=== PATIENT | female | born 1995 | race Caucasian/White ===

== ENCOUNTER 2025-01-12 08:36 | Emergency (ER) | payer BC, OTHER ==
[2025-01-12 08:50] VITALS: RESP 18
--- NOTE | 2025-01-12 09:26 | ED ---
Female Urogenital HPI - General Chief complaint: Vaginal Bleeding Stated complaint: 7 weeks preg, vaginal bleeding Time Seen by Provider: 01/12/25 08:51 Source: patient, RN notes reviewed Mode of arrival: ambulatory Limitations: no limitations - History of Present Illness Initial comments: This is a 29-year-old female who presents to the emergency department for pelvic pain and vaginal bleeding. Patient is approximately 7 weeks and . States that she has had intermittent vaginal bleeding for the last week. Describes it as more of a spotting. She is still waiting for an upcoming appointment with [facility] in the next couple of weeks. Denies any nausea or vomiting associated with this. MD Complaint: vaginal bleeding, pelvic pain - Related Data Allergies Allergy/AdvReac Type Severity Reaction Status Date / Time No Known Allergies Allergy Verified 01/12/25 08:50 Review of Systems ROS Statement: Those systems with pertinent positive or pertinent negative responses have been documented in the HPI. ROS Other: All systems not noted in ROS Statement are negative. Past Medical History Past Medical History: Hypertension History of Any Multi-Drug Resistant Organisms: None Reported Past Surgical History: No Surgical Hx Reported Past Psychological History: Anxiety Smoking Status: Vaper Past Alcohol Use History: None Reported Past Drug Use History: None Reported General Exam Limitations: no limitations General appearance: alert, in no apparent distress Head exam: Present: atraumatic, normocephalic, normal inspection Respiratory exam: Present: normal lung sounds bilaterally. Absent: respiratory distress, wheezes, rales, rhonchi, stridor Cardiovascular Exam: Present: regular rate, normal rhythm Neurological exam: Present: alert, oriented X3, CN II-XII intact Psychiatric exam: Present: normal affect, normal mood Skin exam: Present: warm, dry, intact, normal color. Absent: rash Course Vital Signs 01/12/25 01/12/25 08:47 11:22 Temperature 98.6 F 98.4 F Pulse Rate 70 74 Respiratory 18 18 Rate Blood Pressure 143/86 140/84 O2 Sat by Pulse 97 99 Oximetry Medical Decision Making - Medical Decision Making This is a 29 year old female who presents to the emergency department for vaginal bleeding in . Was pt. sent in by a medical professional or institution? @ -No Did you speak to anyone other than the patient for history? @ -No Did you review nursing and triage notes? @ -Yes, and I agree, it is accurate with regards to the patient's symptoms. Were old charts reviewed? @ -No Differential Diagnosis? @ -Differential Vaginal Bleeding: Spontaneous , threatened , molar , ectopic , incompetent cervix, placenta previa, uterine rupture, dysfunctional uterine bleeding, hemorrhage, uterine fibroids, malignancy, coagulopathy, PID, cervicitis, adenomyosis, vaginal trauma, this is not meant to be an all- inclusive list. EKG interpreted by me (3pts min.)? @ -Not obtained X-rays interpreted by me (1pt min.)? @ -Not obtained CT interpreted by me (1pt min.)? @ -Not obtained U/S interpreted by me (1pt. min.)? @ -Obstetrics ultrasound obtained. My interpretation identifies a single live intrauterine . What testing was considered but not performed? (CT, X-rays, U/S, labs)? Why? @ -None What meds were considered but not given? Why? @ -None Did you discuss the management of the patient with other professionals? @ -No Did you reconcile home meds? @ -No Was smoking cessation discussed for >3mins.? @ -No Was critical care preformed (if so, how long)? @ -No Were there social determinants of health that impacted care today? How? (Homelessness, low income, unemployed, alcoholism, drug addiction, transportation, low edu. Level, literacy, decrease access to med. care, fpc, r ehab)? @ -No Was there de-escalation of care discussed even if they declined? (Discuss DNR or withdrawal of care, Hospice)? @ -No What co-morbidities impacted this encounter? (DM, HTN, Smoking, COPD, CAD, Cancer, CVA, Hep., AIDS, mental health diagnosis, sleep apnea, morbid obesity)? @ - Was patient admitted / discharged? @ -Discharged. [place] [address].3. Lab work other mancuso unremarkable. Urinalysis negative for signs of infection. Patient is Rh+ and no RhoGAM is indicated. OB ultrasound obtained revealing a single live intrauterine . Advised she take Tylenol as needed if she develops any additional cramping, continue a vitamin, and otherwise follow-up with her [facility] as scheduled. Patient discharged home in stable condition. Case discussed with ED attending Dr. Peres. Return precautions reviewed in depth, the patient is instructed to return to the emergency department with any new, worsening, or concerning symptoms. Patient verbalized understanding. Undiagnosed new problem with uncertain prognosis? @ -None Drug Therapy requiring intensive monitoring for toxicity (Heparin, Nitro, Insulin, Cardizem)? @ -None Were any procedures done? @ -None Diagnosis/symptom? @ -Vaginal bleeding in Acute, or Chronic, or Acute on Chronic? @ -Acute Uncomplicated (without systemic symptoms) or Complicated (systemic symptoms)? @ -Uncomplicated Side effects of treatment? @ -None Exacerbation, Progression, or Severe Exacerbation] @ -Not applicable Poses a threat to life or bodily function? @ -No - Lab Data Result diagrams: 01/12/25 09:09 01/12/25 09:09 Lab Results 01/12/25 01/12/25 01/12/25 Range/Units 08:50 09:09 09:09 WBC 8.67 (4.50-10.00) 10*3/uL RBC 4.61 (4.10-5.20) 10*6/uL Hgb 13.1 (12.0-15.0) g/dL Hct 38.6 (37.2-46.3) % MCV 83.7 (80.0-97.0) fL MCH 28.4 (27.0-32.0) pg MCHC 33.9 (32.0-37.0) g/dL Plt Count 194 (140-440) 10*3/uL MPV 10.7 (9.5-12.2) fL Immature Gran % (Auto) 0.3 % Neutrophils % 66.5 % Lymphocytes % 24.5 % Monocytes % 5.8 % Eosinophils % 2.4 % Basophils % 0.5 % Immature Gran # 0.03 (0.00-0.04) 10*3/uL Neutrophils # 5.77 (1.80-7.70) 10*3/uL Lymphocytes # 2.12 (0.90-5.00) 10*3/uL Monocytes # 0.50 (0.20-1.00) 10*3/uL Eosinophils # 0.21 (0.04-0.35) 10*3/uL Basophils # 0.04 (0.00-0.10) 10*3/uL Sodium 137 (137-145) mmol/L Potassium 4.1 (3.5-5.1) mmol/L Chloride 105 (98-107) mmol/L Carbon Dioxide 24 (22-30) mmol/L Anion Gap 8 mmol/L BUN 7 (7-17) mg/dL Creatinine 0.56 (0.52-1.04) mg/dL Est GFR (CKD-EPI)AfAm >90 (>60 ml/min/1.73 sqM) Est GFR (CKD-EPI)NonAf >90 (>60 ml/min/1.73 sqM) Glucose 94 (74-99) mg/dL Calcium 9.4 (8.4-10.2) mg/dL Total Bilirubin 0.5 (0.2-1.3) mg/dL AST 28 (14-36) U/L ALT 28 (4-34) U/L Alkaline Phosphatase 51 (38-126) U/L Total Protein 7.2 (6.3-8.2) g/dL Albumin 4.3 (3.5-5.0) g/dL HCG, Quant 63133.3 mIU/mL Urine Color Urine Appearance (Clear) Urine pH (5.0-8.0) Ur Specific Ronald (1.001-1.035) Urine Protein (Negative) Urine Glucose (UA) (Negative) Urine Ketones (Negative) Urine Blood (Negative) Urine Nitrite (Negative) Urine Bilirubin (Negative) Urine Urobilinogen (<2.0) mg/dL Ur Leukocyte Esterase (Negative) Blood Type Blood Type Confirm B Positive Blood Type Recheck Bld Type Recheck Status Antibody Screen Spec Expiration Date 01/12/25 01/12/25 Range/Units 09:09 09:12 WBC (4.50-10.00) 10*3/uL RBC (4.10-5.20) 10*6/uL Hgb (12.0-15.0) g/dL Hct (37.2-46.3) % MCV (80.0-97.0) fL MCH (27.0-32.0) pg MCHC (32.0-37.0) g/dL Plt Count (140-440) 10*3/uL MPV (9.5-12.2) fL Immature Gran % (Auto) % Neutrophils % % Lymphocytes % % Monocytes % % Eosinophils % % Basophils % % Immature Gran # (0.00-0.04) 10*3/uL Neutrophils # (1.80-7.70) 10*3/uL Lymphocytes # (0.90-5.00) 10*3/uL Monocytes # (0.20-1.00) 10*3/uL Eosinophils # (0.04-0.35) 10*3/uL Basophils # (0.00-0.10) 10*3/uL Sodium (137-145) mmol/L Potassium (3.5-5.1) mmol/L Chloride (98-107) mmol/L Carbon Dioxide (22-30) mmol/L Anion Gap mmol/L BUN (7-17) mg/dL Creatinine (0.52-1.04) mg/dL Est GFR (CKD-EPI)AfAm (>60 ml/min/1.73 sqM) Est GFR (CKD-EPI)NonAf (>60 ml/min/1.73 sqM) Glucose (74-99) mg/dL Calcium (8.4-10.2) mg/dL Total Bilirubin (0.2-1.3) mg/dL AST (14-36) U/L ALT (4-34) U/L Alkaline Phosphatase (38-126) U/L Total Protein (6.3-8.2) g/dL Albumin (3.5-5.0) g/dL HCG, Quant mIU/mL Urine Color Colorless Urine Appearance Clear (Clear) Urine pH 6.5 (5.0-8.0) Ur Specific Ronald 1.001 (1.001-1.035) Urine Protein Negative (Negative) Urine Glucose (UA) Negative (Negative) Urine Ketones Negative (Negative) Urine Blood Negative (Negative) Urine Nitrite Negative (Negative) Urine Bilirubin Negative (Negative) Urine Urobilinogen <2.0 (<2.0) mg/dL Ur Leukocyte Esterase Negative (Negative) Blood Type B Positive Blood Type Confirm Blood Type Recheck No Previous Record Bld Type Recheck Status CABO Indicated Antibody Screen NEGATIVE Spec Expiration Date 01/15/20252308 - Radiology Data Radiology results: report reviewed, image reviewed Disposition Clinical Impression: Vaginal bleeding during Disposition: HOME SELF-CARE Instructions (If sedation given, give patient instructions): Non-Threatening First Trimester Vaginal Bleed (ED) Additional Instructions: Return to the emergency department with any new, worsening, or concerning symptoms. Take Tylenol as needed for any additional cramping. Follow-up with your [facility]. Is patient prescribed a controlled substance at d/c from ED?: No Referrals: Vicki Peres DO [Primary Care Provider] - 1-2 days Time of Disposition: 11:00
[2025-01-12 09:31] LABS: Basophils # (A) 0.04 10*3/uL (0.00-0.10); Basophils % (A) 0.5 %; Eosinophils # (A) 0.21 10*3/uL (0.04-0.35); Eosinophils % (A) 2.4 %; HCT 38.6 % (37.2-46.3); HGB 13.1 g/dL (12.0-15.0); Lymphocytes # (A) 2.12 10*3/uL (0.90-5.00); Lymphocytes % (A) 24.5 %; MCH 28.4 pg (27.0-32.0); MCHC 33.9 g/dL (32.0-37.0); MCV 83.7 fL (80.0-97.0); Mean Platelet Volume 10.7 fL (9.5-12.2); Monocytes % (A) 5.8 %; Neutrophils # (A) 5.77 10*3/uL (1.80-7.70); Neutrophils % (A) 66.5 %; Platelet Count 194 10*3/uL (140-440); RBC 4.61 10*6/uL (4.10-5.20); RDW 13.7 % (11.5-14.5); WBC 8.67 10*3/uL (4.50-10.00)
[2025-01-12 09:52] LABS: Appearance,Urine Clear (Clear); Bilirubin,Urine Negative (Negative); Blood,Urine Negative (Negative); Color,Urine Colorless; Glucose,Urine (UA) Negative (Negative); Ketones,Urine Negative (Negative); Leukocyte Esterase,Urine Negative (Negative); Nitrite,Urine Negative (Negative); PH, Urine 6.5 (5.0-8.0); Protein,Urine Negative (Negative); Specific Gravity,Urine 1.001 (1.001-1.035); Urobilinogen,Urine <2.0 mg/dL (<2.0)
--- NOTE | 2025-01-12 09:58 | US ---
EXAMINATION TYPE: Transabdominal DATE OF EXAM: 01/12/2025 9:46 AM COMPARISON: NONE CLINICAL INDICATION: Female, 29 years old with history of Bleeding and pelvic pain in ; Dark brown spotting started Thursday turned to bright pink today with some pelvic cramping. TECHNIQUE: Transvaginal (TV) and Transabdominal (TA) with grayscale and color Doppler imaging includi ng first trimester . FINDINGS: EXAM MEASUREMENTS: GESTATIONAL AGE / DATING Physician Established: Not yet established ( weeks/ days) EDC: Dates by LMP: (7 weeks/2 days) EDC: 08/29/2025 Dates by First Scan: No previous this is first scan ( weeks/ days) EDC: Dates by Current Scan for: (6 weeks/6 days) EDC: 09/01/2025 MATERNAL ANATOMY Uterus: 9.3 x 4.2 x 7.1 cm Right Ovary: 3.9 x 1.7 x 2.6 cm Left Ovary: 3.0 x 2.3 x 2.6 cm Post CDS / Adnexa: WNL Presence of free fluid: No Presence of corpus luteal cyst: No Presence of subchorionic bleed: No GESTATION / SURVEY CRL: 0.91 (6 weeks/6 days) Gestational Sac morphology: Normal Gestational Sac MSD: NA ( weeks/ days) Yolk Sac (normal less than 6mm): 0.2 cm Cardiac Activity/Heart Rate: 132 bpm Rhythm: Normal IUP: Viable IUP Nuchal Translucency 10-14wks (normal less than 3mm): NA Age Appropriate Anatomy Cord Insertion: Too early to visualize Limbs: Too early to visualize Calvarium: Too early to visualize Date of LMP: 11/22/2024 Beta HcG (if available): Not available at this time Heterogenous/complex area seen right fundal uterus = 3.8 x 2.9 x 2.3 cm IMPRESSION: 1. Single live intrauterine with calculated ultrasound age of 6 weeks 6 days by crown rump length with an estimated date of delivery of 09/01/2025 [facility], , 01/12/2025 9:56 AM
[2025-01-12 10:14] LABS: ALT 28 U/L (4-34); AST 28 U/L (14-36); African American GFR (CKD) >90 (>60 ml/min/1.73 sqM); Albumin 4.3 g/dL (3.5-5.0); Alkaline Phosphatase 51 U/L (38-126); Anion Gap 8 mmol/L; Blood Urea Nitrogen 7 mg/dL (7-17); Calcium 9.4 mg/dL (8.4-10.2); Carbon Dioxide 24 mmol/L (22-30); Chloride 105 mmol/L (98-107); Glucose 94 mg/dL (74-99); Non-African American GFR(CKD) >90 (>60 ml/min/1.73 sqM); Potassium 4.1 mmol/L (3.5-5.1); Sodium 137 mmol/L (137-145); Total Bilirubin 0.5 mg/dL (0.2-1.3); Total Protein 7.2 g/dL (6.3-8.2)
[2025-01-12 11:32] VITALS: BP 140/84; PULSE 74; TEMP 98.4
[2025-01-12 12:13] LABS: HCG,Quantitative Serum 69054.3 mIU/mL
== END 2025-01-12 11:41 | disposition home or self-care (01) ==
LOC: EC 08:36
DX: O20.9 Hemorrhage in early pregnancy, unspecified (principal); O99.331 Smoking (tobacco) complicating pregnancy, first trimester; F17.290 Nicotine dependence, other tobacco product, uncomplicated; Z3A.01 Less than 8 weeks gestation of pregnancy
CPT/HCPCS: 36415; 76801; 76817; 80053; 81003; 84702; 85025; 86850; 86900; 86901; 99284

== ENCOUNTER → 2025-02-02 | Outpatient (CLI) | payer BC, OTHER ==
--- NOTE | 2025-02-02 11:27 | US ---
EXAMINATION TYPE: Transabdominal DATE OF EXAM: 02/02/2025 10:52 AM COMPARISON: NONE CLINICAL INDICATION: Female, 29 years old with history of O46.91 ANTEPART BLEEDING FIRST TRIMESTER; p t spotting starting today TECHNIQUE: Transabdominal (TA) with grayscale and color Doppler imaging including first trimester pre gnancy. FINDINGS: EXAM MEASUREMENTS: GESTATIONAL AGE / DATING Physician Established: (10 weeks/2 days) EDC: 08/29/25 Dates by LMP: (10 weeks/2 days) EDC: 08/29/25 Dates by First Scan: (9 weeks/6 days) EDC: 09/01/25 Dates by Current Scan for: (10 weeks/2 days) EDC: 08/29/25 MATERNAL ANATOMY Uterus: 11.3 x 8.6 x 4.9cm. Hypoechoic area seen on the right side of UT measuring 3.4 x 3.9 x 3.0cm, seen on prior. Right Ovary: 2.8 x 1.9 x 1.3cm Left Ovary: 2.2 x 2.2 x 1.7cm Post CDS / Adnexa: wnl Presence of free fluid: No Presence of corpus luteal cyst: Not seen Presence of subchorionic bleed: No GESTATION / SURVEY CRL: 3.3cm (10 weeks/2 days) Gestational Sac morphology: Normal Cardiac Activity/Heart Rate: 146 bpm Rhythm: Normal IUP: Viable IUP Date of LMP: 11/22/24 Beta HcG (if available): N/A IMPRESSION: 1. Leiomyomatous change. [facility], , 02/02/2025 11:24 AM
== END | disposition home or self-care (01) ==
LOC: RADUSWWP 10:50
PROVIDERS: ATTEND Obstetrics & Gynecology Obstetrics
DX: O46.91 Antepartum hemorrhage, unspecified, first trimester (principal); O34.591 Maternal care for other abnormalities of gravid uterus, first trimester; Z3A.10 10 weeks gestation of pregnancy
CPT/HCPCS: 76801